=== PATIENT | male | born 1950 | race Caucasian/White ===

== ENCOUNTER 2019-09-20 07:53 | Day surgery (SDC) | payer MEDICARE, SELFPAY ==
[2019-09-20] VITALS (8 sets, daily range): BP systolic 109–152; BP diastolic 67–91; PULSE 64–75; RESP 9–16; TEMP 36.1–36.4; O2SAT 90–97; BMI 27.8
--- NOTE | 2019-09-20 | PATH_ITS ---
[facility] Accession Number: [id number] . 01 Material submitted: . colon - TRANSVERSE COLON POLYP BIOPSY AT 100 CM . 02 Diagnosis: Transverse Colon Polyp at 100 cm, Biopsy: Tubular adenoma. [facility] 09/21/2019 1252 Local . 02 Electronically signed: . Wero Fernandes MD, PhD, Pathologist NPI- [id number] . 01 Gross description: . TRANSVERSE COLON POLYP BIOPSY AT 100 CM: Received in formalin is 1 fragment(s) of tapia, soft tissue measuring 0.3 x 0.2 x 0.2 cm submitted entirely in 1 cassette(s) /[facility] 09/21/2019 0202 Local . 02 Pathologist provided ICD-10: D12.3 . 02 CPT . 562764 Performed at: 01 [facility] [address] [id number] MD Yariel Yeh MD Phone: [phone] Performed at: 02 [facility] [address] [place], [place] [id number] MD Frances Estrada MD Phone: [phone]
[2019-09-20] MEDS: SODIUM CHLORIDE 0.9% 1,000 ML 200 ML IV (08:42)
[2019-09-20] MEDS: MIDAZOLAM 5 MG/5 ML VIAL IV (09:00)
--- NOTE | 2019-09-20 09:00 | PM.HP.1 ---
History of Present Illness History of Present Illness Date Patient Seen: 09/20/19 Time Patient Seen: 09:00 Chief complaint: [id number] Narrative: Patient presents for colorectal screening. That a prior colonoscopy 10 years ago which was normal. No personal or family history of colon cancer. On further history denies any recent gastrointestinal symptoms. No nausea, vomiting, abdominal pain, loss of appetite, unexplained weight loss, change in bowel habits, diarrhea, constipation, melena, hematochezia, or bright red blood per rectum. Patient History Medical History Atrial fibrillation (Acute) Bladder cancer (Acute) Palpitations (Acute) Sleep apnea (Acute) Family & Social History Social History: household members spouse Tobacco & Substance use: Smoking Status Never smoker alcohol intake current alcohol intake frequency holiday/special occasion Substance Use Type marijuana Meds Home Medications and Allergies Home Medications Medication Instructions Recorded Confirmed Type sodium,potassium,mag sulfates 17.5 177 ml PO DAILY #354 ml 08/12/19 Rx gram-3.13 gram-1.6 gram oral soln propafenone 100 mg PO TID 09/20/19 09/20/19 History Allergies Allergy/AdvReac Type Severity Reaction Status Date / Time No Known Drug Allergies Allergy Verified 09/20/19 08:31 Review of Systems Review of Systems Narrative: A 10 point review of systems is negative except as noted in the HPI Exam Vital Signs (past 8 hours): - 09/20/19 08:33 Temperature 97.3 F L Pulse Rate 75 Respiratory Rate 15 Blood Pressure 152/91 H Pulse Oximetry 94 Oxygen Delivery Method Room Air Narrative Exam Narrative: General-no acute distress, well nourished HEENT-moist mucous membranes, no scleral icterus Neck-supple, no lymphadenopathy Chest- non labored respirations, clear to auscultation bilaterally Cardiac-regular rate no peripheral edema Abdomen-soft, nontender, non distended Extremities-warm, well perfused Neurological-alert and oriented, no focal deficits Assessment & Plan Assessment and plan (1) Screening for colon cancer: Current visit: Yes Status: Acute Assessment & Plan narrative: The patient requires colorectal screening and colonoscopy is recommended. Technical details were discussed. Risks, benefits, alternatives explained. Risks including but not limited to myocardial infarction, aspiration, bleeding, pain, missed lesion, incomplete examination, need for further radiographic studies, colonic perforation, and need for major abdominal surgery were discussed. All questions were answered to their satisfaction, and they are in agreement with this plan.
[2019-09-20] MEDS: fentaNYL 250 MCG/5 ML INJ IV (09:01)
--- NOTE | 2019-09-20 09:21 | PM.OP.ENDO ---
Operative Date/Time/Diagnoses Date of procedure: 09/20/19 Time of procedure: 09:21 Pre-op diagnosis: Screening colonoscopy Post-op diagnosis: same Procedure & Clinicians Study performed: Colonoscopy Same procedure as scheduled: Yes Indications: 68-year-old male last colonoscopy 10 years ago presents for routine screening Surgeon: Tereso Jones Procedure Notes SCOAP/Timeout: Performed Procedure in detail: Patient placed in left lateral decubitus position. Time out was performed. Procedural sedation was administered with Versed and Fentanyl. A rectal exam demonstrated no external hemorrhoids no internal masses. Colonoscopy scope was placed into the rectum and advanced through the colon to the cecum. The ileocecal valve was identified. The scope was then slowly withdrawn examining colon thoroughly in all directions. The colonoscopy was notable for the following 1. Transverse polyp adenomatous appearing <1 cm removed with jumbo forceps-hemostatic 2. Sigmoid diverticulosis 3. Grade 1 internal hemorrhoids 4. Quality of prep moderate Scope withdrawal time: 8 Sedation minutes: 18 Findings: diverticulosis, internal hemorrhoids and polyp Specimen(s): other (polyp) Complications: none Impression: Polyp Post-procedure Recommendations: Colonscopy in 5 years Disposition: same day surgery
--- NOTE | 2019-09-20 09:33 | SUR.PHASEI ---
report to megan albarran
--- NOTE | 2019-09-20 09:53 | SUR.PHASEI ---
HOB elevated, drinking juice, oriented, drowsy, denies pain.
== END 2019-09-20 10:22 | disposition home or self-care (01) ==
LOC: ENDO 08:00
PROVIDERS: PCP Physician Assistant Medical; Visit Provider Surgery
PROC: 0DJD8ZZ Inspection of Lower Intestinal Tract, Via Natural or Artificial Opening Endoscopic (ICD-10-PCS; CPT 45378; principal; 2019-09-20 09:15)
DX: Z12.11 Encounter for screening for malignant neoplasm of colon (principal); I48.91 Unspecified atrial fibrillation; G47.30 Sleep apnea, unspecified; K57.30 Diverticulosis of large intestine without perforation or abscess without bleeding; K64.0 First degree hemorrhoids; D12.3 Benign neoplasm of transverse colon
CPT/HCPCS: 45380; 99152; J2250; J3010

== ENCOUNTER 2020-01-14 09:38 | Day surgery (SDC) | payer MEDICARE, SELFPAY ==
[2020-01-06 11:34] VITALS: BMI 31.1
[2020-01-14] VITALS (18 sets, daily range): BP systolic 109–152; BP diastolic 63–93; PULSE 58–67; RESP 12–20; TEMP 36.9; O2SAT 91–98; BMI 29.0
--- NOTE | 2020-01-14 | PATH_ITS ---
[facility] Accession Number: [id number] . 01 Material submitted: . PART A: prostate - RIGHT MID PROSTATE PART B: prostate - BLADDER NECK/MEDIAN LOBE PROSTATE . 01 Clinical history: . DX: HISTORY OF HIGH-GRADE CANCER . 02 Diagnosis: A. Right Mid Prostate, Biopsies: Active cystitis with focal giant cell reaction. Negative for dysplasia and malignancy. . B. Bladder Neck/Median Lobe Prostate, Biopsies: Active prostatitis. Benign urothelium with cystitis cystica. No evidence of dysplasia or malignancy. [facility] 01/19/2020 1459 Local . 02 Comment: The presence of a few giant cells is favored to be procedure or treatment-related. As part of routine quality assurance coach, Dr. Fernandes also reviewed this case and agrees with the diagnosis. . 02 Electronically signed: . Frances Estrada MD, Pathologist NPI- [id number] . 01 Gross description: . Part A: RIGHT MID PROSTATE: Received in formalin is 1 fragment(s) of tapia, soft tissue measuring 0.5 x 0.3 x 0.3 cm submitted entirely in 1 cassette(s) Part B: BLADDER NECK/MEDIAN LOBE PROSTATE: Received in formalin are 9 fragment(s) of tapia, soft tissue measuring 1.0 x 0.5 x 0.3 cm to 0.5 x 0.3 x 0.1 cm submitted entirely in 3 cassette(s) /Q 01/15/2020 0826 Local . 02 Pathologist provided ICD-10: Z85.51 . 02 CPT . 742957, 922657 Performed at: 01 [facility] [address] [place] [address] [address], [place], [place] [id number] MD Yariel Yeh MD Phone: [phone] Performed at: 02 [facility] [address] [place] [id number] MD Frances Estrada MD Phone: [phone]
--- NOTE | 2020-01-14 10:51 | PM.PREOP ---
Pre-operative Note Interval Note History & Physical reviewed/Exam performed by Physician: Yes Changes to H&P: No H&P completed within 30 days and has changed as indicated here:: There are no changes to the history and physical examination scanned on file.
[2020-01-14 11:22] LABS: COVID19 -Nasal RAPID Negative (Negative)
[2020-01-14] MEDS: CEFAZOLIN 2 GM/100 ML FROZ.PIGGY IV (11:55)
--- NOTE | 2020-01-14 12:27 | SUR.OPER ---
Lithotomy on padded OR bed, head on pillow, arms secured on padded arm boards at <90 degrees abduction. Legs secured in padded yellow fins stirrups.
[2020-01-14] MEDS: WATER FOR INJECTION,STERILE 20 ML, mitoMYcin 20 MG INTRAVESIC (12:40)
[2020-01-14] MEDS: BELLADONNA/OPIUM SUPPOSITORIES 1 EACH PR (12:42)
--- NOTE | 2020-01-14 12:46 | P.OP_ITS ---
Operative Date/Time/Diagnoses Date of procedure: 01/14/20 Time of procedure: 12:47 Pre-op diagnosis: 1. History of high-grade urothelial carcinoma of the bladder. 2. Neoplasm prostatic urethra and bladder neck. Post-op diagnosis: same Procedure & Clinicians Procedure: 1. Cystoscopy and transurethral resection of prostate. 2. Cystoscopy and transurethral resection of bladder tumor (2-5 cm). 3. Instillation mitomycin C (20 mg). Same procedure as scheduled: Yes Indications: 1. Papillary appearing recurrence right prostatic mid urethra. 2. Papillary and spreading appearance of the urothelium at the juncture of the modest intravesical median lobe and bladder neck. 3. Prostate-4.5+ cm length with obstructing trilobar hyperplasia. There was a papillary projection from the mid prostatic urethra on the right. A TUR excision was performed. 4. Bladder-cellule formation, 2+ trabeculation. There is a moderate-sized posterior wall diverticulum that is wide mouth. There is modest intravesical protrusion of median lobe. Outpatient flexible cystoscopy identified red raised and papillary changes along the posterior portion of this median lobe segment. Surgeon: Renita Thomson Click Yes if Unassisted: Yes Anesthesia Type: General Operative Notes Findings: 1. Urethra-normal. 2. External sphincter-coapted. 3. Prostate 4.5+ cm length with obstructing trilobar hyperplasia. There was a papillary projection noticed at about the mid urethra on the right not seen well on outpatient flexible cystoscopy. 4. Bladder-2+ trabeculation and cellule formation. There is a modest sized posterior wall diverticulum with wide mouth. There is modest intravesical protrusion of median lobe. Closure Type: not applicable Specimen(s): other (1. Prostatic urethra right mid. 2. Bladder neck/median lobe prostate. ) Applied: catheter (#22F Huffman) Estimated Blood Loss (mL): 0 Blood products transfused: none Tourniquet time (min): 0 Procedure in detail: Patient was positioned in supine was administered general anesthesia. He was then repositioned semi lithotomy in the lower abdomen genitalia and groin were prepped and draped in sterile fashion. A 25 Stateless resectoscope was then passed into the lower urinary tract with the findings as described above. The resecting loop was then fitted to the working element of the scope. A TUR resection of the lesion of the right mid prostatic urethra was performed. The specimen was collected labeled cyst as to the site of procurement and sent to pathology for routine gross and microscopic examination. Next the protruding intravesical median lobe was resected from approximately 4:00 to 8:00 hemostasis was obtained with electrocautery. All tissue was collected and labeled from the site appear cure min. It was then submitted to pathology for routine gross and microscopic examination. The bladder was left partially filled and all instrumentation was then removed. A 22 Stateless Huffman catheter was then inserted, and the balloon inflated to 15 cc. A solution of 20 mg of mitomycin-C suspended in 20 cc sterile saline was then instilled in the bladder and a catheter plug position for anticipated to our postoperative retention. The patient was then repositioned in supine, was awakened, and transferred to a gurney in stable condition. Complications: none Post-operative Condition: stable Disposition: PACU Plan for aftercare: Discharge home.
--- NOTE | 2020-01-14 13:36 | SUR.PHASEI ---
Per pt to position on back x 30 minutes, on left side 30 minutes, on right side 30 minutes, then if tolerated on tummy 30 minutes.
[2020-01-14] MEDS: fentaNYL 100 MCG/2 ML INJ IV (14:00)
== END 2020-01-14 15:29 | disposition home or self-care (01) ==
LOC: OR 09:41 → AC 09:42
PROVIDERS: PCP Family Medicine Geriatric Medicine; Referring Provider Specialist; Visit Provider Specialist
PROC: 0TBB8ZZ Excision of Bladder, Via Natural or Artificial Opening Endoscopic (ICD-10-PCS; CPT 52630; principal; 2020-01-14 11:15)
PROC: 0VT08ZZ Resection of Prostate, Via Natural or Artificial Opening Endoscopic (ICD-10-PCS; CPT 52601; 2020-01-14 11:15)
DX: N41.9 Inflammatory disease of prostate, unspecified (principal); N40.1 Benign prostatic hyperplasia with lower urinary tract symptoms; N52.9 Male erectile dysfunction, unspecified; G47.33 Obstructive sleep apnea (adult) (pediatric); Z11.59 Encounter for screening for other viral diseases; N30.90 Cystitis, unspecified without hematuria
CPT/HCPCS: 52630; 52235; 87635; J0690; J1100; J2250; J2405; J2704; J3010; J9280

== ENCOUNTER → 2022-10-03 09:35 | Outpatient (CLI) | payer MEDICARE, SELFPAY ==
--- NOTE | 2022-10-08 08:06 | PM.PFT.1 ---
Pulmonary Function Test Referral & Results Date Patient Seen: 10/03/22 Requesting provider: Edwardo Adam Results: The spirometry demonstrates an FVC of 4.4 L which is 96% of predicted. The FEV1 was measured at 3.68 L which is 109% of predicted. The FEV1/FVC ratio was 82 which is 112% of predicted. Lung volumes show an SVC of 4.26 L which is 80% of predicted. The diffusing capacity was measured at 25.68 which is 73% of predicted. No hemoglobin value was provided, so no correction for potential anemia could be made, if appropriate. Interpretation: This study demonstrates normal spirometry There is a minimal reduction diffusing capacity suggesting the presence of disease at the capillary alveolar level
== END ==
PROVIDERS: PCP Family Medicine; Referring Provider Internal Medicine Cardiovascular Disease; Visit Provider Internal Medicine Cardiovascular Disease
DX: Z79.899 Other long term (current) drug therapy (principal); R06.02 Shortness of breath; J98.8 Other specified respiratory disorders
CPT/HCPCS: 94010; 94726; 94729

== ENCOUNTER 2023-02-17 07:44 | Day surgery (SDC) | payer MEDICARE, SELFPAY ==
[2023-02-10 09:50] VITALS: BMI 31.1
[2023-02-17] VITALS (8 sets, daily range): BP systolic 108–165; BP diastolic 65–82; PULSE 57–68; RESP 10–18; TEMP 35.9–36.3; O2SAT 92–99; BMI 30.5
--- NOTE | 2023-02-17 | PATH_ITS ---
[facility] Accession Number: [id number] No. of containers..01 Tissue . 01 Material submitted: . BLADDERWALL - LEFT POSTERIOR BLADDER WALL BIOPSY . 01 Diagnosis: Urinary Bladder, Left Posterior Wall, Biopsy: Urothelial carcinoma in situ, flat. - Negative for invasion into suburothelial stroma. - Negative for lymphovascular invasiion. - Muscularis propria not present in biopsy. [facility] 02/24/2023 1048 Local . 01 Electronically signed: . Saskia Fragoso MD, Pathologist NPI- [id number] . 01 Gross description: . LEFT POSTERIOR BLADDER WALL BIOPSY: Received in formalin are 3 fragment(s) of tapia, soft tissue measuring 0.1 x 0.1 x 0.1 cm to 0.3 x 0.3 x 0.2 cm submitted entirely in 1 cassette(s) /[facility] 02/19/2023 2308 Local . 01 Pathologist provided ICD-10: D09.0 . 01 CPT . 626438 Specimen Comment: A courtesy copy of this report has been sent to [phone] Performed at: 01 [facility] [address] [place] [id number] MD Yariel Yeh MD Phone: [phone]
[2023-02-17] MEDS: LACTATED RINGERS 1,000 ML 21 ML IV (10:36)
--- NOTE | 2023-02-17 11:04 | PM.PREOP ---
Pre-operative Note COVID-19 Criteria for continued procedure: Expected advancement of disease process, Possibility delay results in more complex future surgery or treatment, Deterioration of the patient's condition or overall health, Delay expected to result in less-positive ultimate med/surg outcome and Non-surgical alternatives not available or appropriate per current SOC Interval Note History & Physical reviewed/Exam performed by Physician: Yes Changes to H&P: No
[2023-02-17] MEDS: CEFAZOLIN 2 GM/100 ML PREMIX 100 ML IV (12:20)
[2023-02-17] MEDS: ACETAMINOPHEN IV 1,000 MG/100 ML VIAL 400 MG IV (12:25)
--- NOTE | 2023-02-17 12:42 | SUR.OPER ---
Lithotomy on padded OR bed, head on pillow, arms secured on padded arm boards at <90 degrees abduction. Legs secured in padded yellow fins stirrups. Gel pads under bilateral wrists.
[2023-02-17] MEDS: WATER FOR INJECTION,STERILE 20 ML, mitoMYcin 20 MG INTRAVESIC (13:10)
--- NOTE | 2023-02-17 13:24 | PM.OP.1 ---
Operative Date/Time/Diagnoses Date of procedure: 02/17/23 Time of procedure: 13:10 Pre-op diagnosis: 1. History of bladder cancer (cis). 2. Prostate calculi. 3. Bladder outlet obstruction due to BPH. 4. Bilateral Hutch diverticula. Post-op diagnosis: same Procedure & Clinicians Procedure: 1. Cystoscopy/bladder biopsy. 2. Transurethral resection/destruction posterior bladder wall neoplasm (2-5 cm). 3. Laser litholapaxy of prostatic calculi. 4. Laser resection of bladder neck contracture. Same procedure as scheduled: No (Transverse bladder neck ledge remained after treatment of prostatic calculi) Indications: 1. History of bladder cancer (cis). 2. Neoplasm of uncertain behavior at left posterior wall. 3. Prostatic calculi. Surgeon: Renita Thomson Click Yes if Unassisted: Yes Anesthesia Type: General Operative Notes Findings: 1. Urethra-normal caliber without annular stricture or lesion. 2. External sphincter-coapted with normal overlying urothelium. 3. Prostate-4.5 cm length with obstructing lateral lobe hyperplasia. There were bilateral proximal prostatic fossa calculi posteriorly with a ?popcorn? morphology. Following laser litholapaxy of these calculi there was undermining slightly of the bladder neck and resultant transfers ledge creating a lip of bladder neck tissue. 4. Bladder-1 to 2+ trabeculation. Bilateral left greater sized than right Hutch diverticula. There is an irregular, raised and erythematous region at the low posterior wall to left of the midline. Closure Type: not applicable Specimen(s): other Prosthetic devices, grafts, tissues, transplants, or devices: Bladder biopsy x3 left posterior bladder wall. Applied: catheter (Eighteen Bolivian Huffman catheter to gravity drainage.) Estimated Blood Loss (mL): 2 Blood products transfused: none Procedure in detail: Patient was positioned supine was administered general anesthesia. He was then repositioned in semilithotomy of the lower abdomen, genitalia, and groin were then prepped and draped in sterile fashion. The resectoscope was advanced lower urinary tract under direct visualization with the findings as described above. Next the working element was fitted with a button electrode and the lesion at the posterior wall was localized superficially in circumferentially with button electrode cauterization to maintain orientation and geographic limits of the lesion extent. Resectoscope was then fitted with the cold cup biopsy forceps in 3 generous samples were obtain at various suspicious locations within the previously mapped region of interest. Though samples were submitted for routine gross and microscopic examination. The cold cup biopsy forceps were then exchanged for the button electrode and the geographic lesion mapped out previously was then superficially cauterized with complete mucosal destruction. The biopsy beds were cauterized for hemostasis as well. The bladder was then left partially filled resectoscope was removed. The laser cystoscope was introduced lower urinary tract and the 550 micron laser fiber was selected. The above-described index calculi were laser fragmented readily. Once this was done it was evidence of the bladder neck was slightly undermined and there is a horizontal ledge remaining. Laser was then used to TUR contour this for smooth transition from bladder floor to prostatic fossa. Hemostasis was excellent. Bladder is then left partially filled the laser resectoscope was removed. An 18 Bolivian Huffman catheter was then passed and positioned in the lower urinary tract, bladder contents strain, and the balloon inflated 10 cc. A 50 cc solution containing 20 mg mitomycin C were then instilled in the bladder to catheter plug was positioned for anticipated 2 hour postoperative retention. The patient was then repositioned in supine, was awakened, then transferred to [facility] for transportation to PACU in stable condition. Complications: none Post-operative Condition: stable Disposition: PACU Plan for aftercare: Discharge home.
[2023-02-17] MEDS: ONDANSETRON 4 MG/2 ML INJ IV (13:43)
--- NOTE | 2023-02-17 14:02 | SUR.PHASEII ---
Call light within reach. Patient again declined beverage due to bladder pressure.
--- NOTE | 2023-02-17 14:52 | SUR.PHASEII ---
1407 turned to right side, 1432 turned to left side.
[2023-02-17] MEDS: OXYCODONE IR 5 MG TABLET PO (15:36)
--- NOTE | 2023-02-17 15:55 | SUR.PHASEII ---
[place] unplugged and fluid drained in a [place]a bag. This bag was disposed of and a new bag was placed, a large bag per patient request. Patient and spouse shown how to change leg and large bag and empty bags. [place]a care discussed, questions answered. Patient tolerated the procedure without difficulty. He reported 4/10 bladder pain. He was provided with water and cracker and medicated for pain.
== END 2023-02-17 15:39 | disposition home or self-care (01) ==
PROVIDERS: PCP Family Medicine; Referring Provider Specialist; Visit Provider Specialist
PROC: 0TBB8ZZ Excision of Bladder, Via Natural or Artificial Opening Endoscopic (ICD-10-PCS; CPT 52235; principal; 2023-02-17 11:15)
PROC: 0TCB8ZZ Extirpation of Matter from Bladder, Via Natural or Artificial Opening Endoscopic (ICD-10-PCS; CPT 52235; 2023-02-17 11:15)
DX: C67.4 Malignant neoplasm of posterior wall of bladder (principal); Z85.51 Personal history of malignant neoplasm of bladder; N32.3 Diverticulum of bladder; N42.0 Calculus of prostate
CPT/HCPCS: 52235; 52317; J0131; J0171; J0690; J1100; J2405; J2704; J3010; J9280

== ENCOUNTER → 2023-03-12 10:13 | Outpatient (CLI) | payer MEDICARE, SELFPAY | PROVIDERS: PCP Family Medicine; Visit Provider Specialist | DX: C67.4 Malignant neoplasm of posterior wall of bladder (principal); Z87.442 Personal history of urinary calculi; Z85.51 Personal history of malignant neoplasm of bladder | CPT/HCPCS: 51720; 81002; 87086; 99214; J9030 ==

== ENCOUNTER → 2023-03-19 10:11 | Outpatient (CLI) | payer MEDICARE, SELFPAY | PROVIDERS: PCP Family Medicine; Visit Provider Specialist | DX: N13.8 Other obstructive and reflux uropathy (principal); N40.1 Benign prostatic hyperplasia with lower urinary tract symptoms; Z87.442 Personal history of urinary calculi | CPT/HCPCS: 87086 ==

== ENCOUNTER → 2024-06-08 11:59 | Outpatient (CLI) | payer MEDICARE, SELFPAY ==
[2024-06-08 13:26] LABS: Prostate Specific Antigen 1.67 ng/mL (0.10-4.00)
== END ==
PROVIDERS: PCP Family Medicine; Referring Provider Urology; Visit Provider Urology
DX: N40.1 Benign prostatic hyperplasia with lower urinary tract symptoms (principal); N13.8 Other obstructive and reflux uropathy
CPT/HCPCS: 36415; 84153